=== PATIENT | male | born 1975 | race African-American/Black ===

== ENCOUNTER 2020-03-29 01:07 | Emergency (ER) | payer OTHER ==
[~2020-03-29] VITALS: Ht 165.1 cm; Wt 75.0 kg
[2020-03-29] MEDS ORDERED: BACITRACIN ZINC OINT UDPKT TOP ONE (01:45)
[2020-03-29] MEDS ORDERED: LIDOCAINE HCL/PF 1% 10 MG/ML 5ML VIAL IJ ONE (01:45)
[2020-03-29 02:07] VITALS: BP 120/64
== END 2020-03-29 02:14 | disposition home or self-care (01) ==
LOC: ER 01:07
DX: S01.111A Laceration without foreign body of right eyelid and periocular area, initial encounter (principal); V49.49XA Driver injured in collision with other motor vehicles in traffic accident, initial encounter; Y93.89 Activity, other specified; Y92.488 Other paved roadways as the place of occurrence of the external cause; F12.90 Cannabis use, unspecified, uncomplicated
CPT/HCPCS: 12011; 99283